=== PATIENT | male | born 1955 | race Caucasian/White ===

== ENCOUNTER → 2020-10-01 | Outpatient (CLI) | payer MEDICARE, BC ==
--- NOTE | 2020-10-01 14:58 | RAD ---
PA and lateral chest x-ray without comparison for cough. FINDINGS: There is a subtle small linear airspace opacity in the right lower lung centrally which may represent atelectasis or early developing infiltrate. Lungs are otherwise clear. Heart size within normal limits. No significant soft tissue or osseous abnormalities. IMPRESSION: 1. Possible very early infiltrate or atelectasis in the right medial lower lung. Electronically signed by: Matt Whitney MD (10/01/2020 2:55 PM) [id number]
== END ==
LOC: DXRAD 12:15
PROVIDERS: ATTEND Family Medicine
DX: R05 Cough (principal)
CPT/HCPCS: 71046

== ENCOUNTER → 2020-11-06 | Outpatient (CLI) | payer MEDICARE, BC ==
--- NOTE | 2020-11-06 14:34 | RAD ---
Chest radiograph 11/06/2020 11:12 AM INDICATION: Cough COMPARISON: 10/01/2020 TECHNIQUE: Frontal and lateral views of the chest are provided. FINDINGS: The cardiomediastinal silhouette is within normal limits. There are no pleural effusions. There is no pulmonary vascular congestion. There is no pneumothorax. The lungs are clear. No significant osseous abnormality is identified. IMPRESSION: No acute cardiopulmonary process. Electronically signed by: Nu Norwood MD (11/06/2020 2:31 PM) [id number]
== END ==
LOC: DXRAD 10:53
PROVIDERS: ATTEND Family Medicine
DX: R05 Cough (principal)
CPT/HCPCS: 71046